=== PATIENT | male | born 1935 | race Caucasian/White ===

== ENCOUNTER 2017-06-26 11:17 | Emergency (ER) | payer MEDICARE, OTHER ==
[~2017-06-26] VITALS: Ht 177.8 cm; Wt 93.0 kg
[~2017-06-26 11:17] MED LIST: ADULT LOW DOSE81 MG PO; ALLOPURINOL 30300 M1 PO; APAP650 PO; AVANDIA; AVANDIA PO; CELEBREX 200 M200 MG PO; CIPROFLOXACIN500 M1 PO; CLINDAMYCIN; DARVOCET-N 1001 EACH PO; ETODOLAC 400 M400 M1 PO; FINASTERIDE5 MG PO; GEMFIBROZIL 60600 MG PO; HYDROCHLOROTHIA25 M1 PO; KAOPECTATE PO; KAOPECTATE240 MG PO; LEVOTHROID PO; LEVOTHROID150 MCG PO; LISINOPRIL-HCT1 EACH PO; LISINOPRIL10 MG PO; LORTAB 5 MG/5001 TA1 PO; PRILOSEC 20 MG20 MG PO; PROPOXY-N-APAP1 EACH PO; PROTONIX40 MG PO; REQUIP 1 MG TABL1 M1 PO; SLOW RELEASE IRON PO; UROXATRAL; UROXATRAL PO; ZOCOR 20 MG TAB20 M1 PO
[2017-06-26] MEDS ORDERED: METFORMIN HCL500 MG PO (11:30)
[2017-06-26 11:46] LABS: ABSOLUTE BASOPHILS 0.1 thou/uL (0.0-0.2); ABSOLUTE EOSINOPHILS 0.5 thou/uL (0.0-0.7); ABSOLUTE MONOCYTES 0.7 thou/uL (0.0-1.2); BASOPHILS 1.2 %; EOSINOPHILS 5.1 %; HEMATOCRIT 46.6 % (42.0-52.0); HEMOGLOBIN 15.9 gm/dL (14.0-18.0); LYMPHOCYTES 21.3 %; MCH 33.3 pg (26.0-34.0); MCHC 34.1 g/dL (28.0-37.0); MCV 97.7 fL (80.0-100.0); MONOCYTES 7.7 %; MPV 7.5 fl. (7.2-11.1); NUCLEATED RBCS 0 /100WBC; PLATELET COUNT* 225 thou/uL (150-400); POLYS 64.7 %; RBC 4.77 mil/uL (4.50-6.00); RDW-CV 13.4 % (10.5-14.5); WBC 9.2 thou/uL (4.0-11.0)
[2017-06-26 11:54] LABS: ANION GAP 10 mmol/L (7-16); BUN 23 mg/dL (7-18); CALCIUM 8.9 mg/dL (8.5-10.1); CHLORIDE 102 mmol/L (98-107); CO2 26 mmol/L (21-32); CREATININE 1.4 mg/dL (0.6-1.3); GLUCOSE 140 mg/dL (70-99); POTASSIUM 4.6 mmol/L (3.5-5.1); SODIUM 138 mmol/L (136-145)
[2017-06-26 11:55] LABS: APTT 28.1 Seconds (25.0-31.3); PROTIME 10.1 Seconds (9.20-11.50)
[2017-06-26 12:07] LABS: ALBUMIN 4.1 g/dL (3.4-5.0); ALKALINE PHOSPHATASE 77 U/L (46-116); NT-PRO BRAIN NAT PEPTIDE 51 pg/mL (<300); SGOT 25 U/L (15-37); SGPT 28 U/L (30-65); TOTAL BILIRUBIN 0.6 mg/dL (<0.1-1.0); TOTAL PROTEIN 7.3 g/dL (6.4-8.2); TROPONIN-I LEVEL <0.06 ng/mL (<0.06)
[2017-06-26 12:09] LABS: URINE BILIRUBIN NEGATIVE (Negative); URINE BLOOD NEGATIVE (Negative); URINE CLARITY CLEAR; URINE COLOR YELLOW; URINE GLUCOSE-RANDOM NEGATIVE (Negative); URINE KETONES NEGATIVE (Negative); URINE LEUKOCYTES-REFLEX NEGATIVE (Negative); URINE NITRITE-REFLEX NEGATIVE (Negative); URINE PROTEIN NEGATIVE (Negative); URINE UROBILINOGEN 0.2 E.U./dl (0.2-1.0)
[2017-06-26] MEDS ORDERED: ZPAK PO (13:38)
[2017-06-26] MEDS ORDERED: ANTIVERT25 MG PO (13:38)
[2017-06-26 13:47] VITALS: BP 131/82
--- NOTE | 2017-06-26 15:53 | EKG ---
[place] [address] ELECTROCARDIOGRAM REPORT Name: ROEL THURMAN [id number] Admission: 06/26/17 Attend Phys: Discharge: 06/26/17 Date of : 39 Report #: [id number] THIS REPORT FOR: //name// [facility] ED Test Date: 2017-06-26 Test Time: 11:28:45 Pat Name: ROEL THURMAN Department: Room: Gender: M Formulation Technician: BIBI : 1935 Requested By: Arnold Pierre Order Number: [id number] MD: Duran Alvares Measurements Intervals [place] Rate: 89 P: 18 MI: 213 QRS: -56 QRSD: 103 T: 37 QT: 347 QTc: 423 Interpretive Statements Sinus rhythm Borderline prolonged MI interval Left anterior fascicular block Abnormal R-wave progression, early transition Compared to ECG 11/20/2009 16:48:37 Left anterior fascicular block now present Atrial premature complex(es) no longer present Electronically Signed On 06-26-2017 15:53:00 DIRECTOR OF TEACHER EDUCATION by Duran Alvares [email or web address] <ELECTRONICALLY SIGNED> By: Duran Alvares MD, [facility] 06/26/17 1553 [id number] Duran Alvares MD, [facility] /EPI
== END 2017-06-26 13:48 | disposition home or self-care (01) ==
LOC: M.ERS 11:17
PROVIDERS: Emergency Medicine Emergency Medical Services
DX: H81.12 Benign paroxysmal vertigo, left ear (principal); I10 Essential (primary) hypertension; E11.9 Type 2 diabetes mellitus without complications; K21.9 Gastro-esophageal reflux disease without esophagitis; Z98.890 Other specified postprocedural states; Z96.651 Presence of right artificial knee joint; Z86.69 Personal history of other diseases of the nervous system and sense organs; Z88.0 Allergy status to penicillin; Z88.2 Allergy status to sulfonamides; Z88.5 Allergy status to narcotic agent; Z91.048 Other nonmedicinal substance allergy status

== ENCOUNTER 2017-09-05 21:00 | Emergency (ER) | payer MEDICARE, OTHER ==
[~2017-09-05] VITALS: Ht 177.8 cm; Wt 90.0 kg
[~2017-09-05 21:00] MED LIST changes: +ANTIVERT25 MG PO; +METFORMIN HCL500 MG PO; +ZPAK PO
[2017-09-05 21:25] LABS: ABSOLUTE BASOPHILS 0.1 thou/uL (0.0-0.2); ABSOLUTE EOSINOPHILS 0.4 thou/uL (0.0-0.7); ABSOLUTE LYMPHOCYTES 2.2 thou/uL (0.8-5.3); ABSOLUTE MONOCYTES 1.2 thou/uL (0.0-1.2); ABSOLUTE NEUTROPHILS 13.6 thou/uL (1.6-8.1); BASOPHILS 0.6 %; CREATININE 1.7 mg/dL (0.6-1.3); HEMATOCRIT 47.3 % (42.0-52.0); HEMOGLOBIN 16.1 gm/dL (14.0-18.0); LYMPHOCYTES 12.8 %; MCH 32.8 pg (26.0-34.0); MCHC 34.1 g/dL (28.0-37.0); MCV 95.9 fL (80.0-100.0); MONOCYTES 6.9 %; MPV 7.9 fl. (7.2-11.1); NUCLEATED RBCS 0 /100WBC; PLATELET COUNT* 229 thou/uL (150-400); POLYS 77.7 %; POTASSIUM 4.3 mmol/L (3.5-5.1); RBC 4.93 mil/uL (4.50-6.00); RDW-CV 13.1 % (10.5-14.5); WBC 17.5 thou/uL (4.0-11.0)
[2017-09-05 21:30] LABS: TOTAL BILIRUBIN 0.7 mg/dL (<0.1-1.0); TOTAL PROTEIN 7.4 g/dL (6.4-8.2)
[2017-09-05 23:13] VITALS: BP 151/82
== END 2017-09-05 23:15 | disposition home or self-care (01) ==
LOC: M.ERS 21:00
PROVIDERS: Emergency Medicine
DX: S00.83XA Contusion of other part of head, initial encounter (principal); G25.81 Restless legs syndrome; M10.9 Gout, unspecified; I10 Essential (primary) hypertension; E11.9 Type 2 diabetes mellitus without complications; K21.9 Gastro-esophageal reflux disease without esophagitis; Z96.652 Presence of left artificial knee joint; Z88.6 Allergy status to analgesic agent; Z88.0 Allergy status to penicillin; Z88.2 Allergy status to sulfonamides; Z88.5 Allergy status to narcotic agent; W01.198A Fall on same level from slipping, tripping and stumbling with subsequent striking against other object, initial encounter; Y93.89 Activity, other specified; Y92.091 Bathroom in other non-institutional residence as the place of occurrence of the external cause; Y99.8 Other external cause status

== ENCOUNTER 2018-07-20 15:08 | Inpatient (IN) | payer MEDICARE, OTHER ==
[~2018-07-20] VITALS: Ht 177.8 cm; Wt 80.6 kg
[~2018-07-20 15:08] MED LIST changes: +FLOMAX0.4 MG PO; -LEVOTHROID PO; +SYNTHROID100 MC1 PO; -UROXATRAL PO
[2018-07-20 15:19] VITALS: BP 133/58
[2018-07-20 15:43] LABS: ABSOLUTE BASOPHILS 0.1 thou/uL (0.0-0.2); ABSOLUTE EOSINOPHILS 0.3 thou/uL (0.0-0.7); ABSOLUTE LYMPHOCYTES 1.7 thou/uL (0.8-5.3); ABSOLUTE MONOCYTES 0.6 thou/uL (0.0-1.2); ABSOLUTE NEUTROPHILS 5.5 thou/uL (1.6-8.1); BASOPHILS 1.4 %; EOSINOPHILS 3.5 %; HEMATOCRIT 37.4 % (42.0-52.0); HEMOGLOBIN 12.3 gm/dL (14.0-18.0); LYMPHOCYTES 21.1 %; MCH 31.1 pg (26.0-34.0); MCV 94.2 fL (80.0-100.0); MONOCYTES 7.5 %; MPV 7.2 fl. (7.2-11.1); NUCLEATED RBCS 0 /100WBC; PLATELET COUNT* 263 thou/uL (150-400); POLYS 66.5 %; RBC 3.97 mil/uL (4.50-6.00); RDW-CV 15.6 % (10.5-14.5); WBC 8.3 thou/uL (4.0-11.0)
[2018-07-20 15:57] LABS: ANION GAP 6 mmol/L (7-16); BUN 18 mg/dL (7-18); CHLORIDE 105 mmol/L (98-107); CO2 27 mmol/L (21-32); CREATININE 1.3 mg/dL (0.6-1.3); GLUCOSE 147 mg/dL (70-99); SODIUM 138 mmol/L (136-145)
[2018-07-20 16:01] LABS: ALBUMIN 3.5 g/dL (3.4-5.0); ALKALINE PHOSPHATASE 97 U/L (46-116); SGOT 17 U/L (15-37); SGPT 18 U/L (30-65); TOTAL BILIRUBIN 0.4 mg/dL (<0.1-1.0); TOTAL PROTEIN 6.9 g/dL (6.4-8.2); TROPONIN-I LEVEL <0.06 ng/mL (<0.06)
[2018-07-20 17:55] VITALS: BP 153/79
[2018-07-20 18:15] VITALS: BP 134/68
[2018-07-20 20:00] VITALS: BP 127/73
[2018-07-20] MEDS ORDERED: NORCO 5-325 TA1 EACH PO (20:41)
[2018-07-20] MEDS ORDERED: TRAMADOL 50 MG50 MG PO (20:42)
[2018-07-20 21:30] LABS: URINE BILIRUBIN NEGATIVE (Negative); URINE BLOOD NEGATIVE (Negative); URINE CLARITY CLEAR; URINE COLOR YELLOW; URINE GLUCOSE-RANDOM NEGATIVE (Negative); URINE KETONES NEGATIVE (Negative); URINE LEUKOCYTES-REFLEX NEGATIVE (Negative); URINE NITRITE-REFLEX NEGATIVE (Negative); URINE PROTEIN NEGATIVE (Negative); URINE SPECIFIC GRAVITY <= 1.005 (1.005-1.030); URINE UROBILINOGEN 0.2 E.U./dl (0.2-1.0)
[2018-07-21] VITALS: BP 129/60
[2018-07-21 04:00] VITALS: BP 140/63
[2018-07-21 05:33] LABS: CHOLESTEROL 104 mg/dL (<200); HDL CHOLESTEROL 42 mg/dL (>40); LDL CHOLESTEROL 44 mg/dL (<100); TC:HDL 2.5 Ratio (Not establshd); TRIGLYCERIDE 90 mg/dL (<150); VLDL 18 mg/dL (<40)
[2018-07-21 05:36] LABS: SERUM ASSESSMENT CLEAR
[2018-07-21 09:00] VITALS: BP 144/69
--- NOTE | 2018-07-21 10:14 | EKG ---
[place] [address] ELECTROCARDIOGRAM REPORT Name: REOL THURMAN Room: [address] ADM IN .R.#: [id number] Admission: 07/20/18 Attend Phys: Mauro Patton MD Discharge: Date of : 39 Report #: [id number] THIS REPORT FOR: //name// [facility] ED Test Date: 2018-07-20 Test Time: 15:34:33 Pat Name: ROEL THURMAN Department: Room: [facility] Gender: M Motorcoach Driver: HIRA : 1935 Requested By: Arline Shukla Order Number: [id number] MD: Eddie Cheema Measurements Intervals [place] Rate: 93 P: 17 CO: 180 QRS: -36 QRSD: 96 T: 34 QT: 348 QTc: 433 Interpretive Statements Sinus rhythm Left axis deviation Abnormal R-wave progression, early transition Compared to ECG 06/26/2017 11:28:45 no change Electronically Signed On 07-21-2018 10:14:11 PHYSICS INSTRUCTOR by Eddie hCeema [email or web address] <ELECTRONICALLY SIGNED> By: Eddie Cheema MD, FAC 07/21/18 1014 1534 1534 Eddie Cheema MD, [facility] /EPI
[2018-07-21] MEDS ORDERED: ANTIVERT25 MG PO (11:24)
[2018-07-21 12:20] VITALS: BP 151/79
[2018-07-21 15:33] VITALS: BP 151/79
[2018-07-21 16:29] VITALS: BP 133/64
[2018-07-21 23:06] LABS: GLYCOHEMOGLOBIN (HGB A1C) 6.2 % (4.8-5.6)
== END 2018-07-21 17:28 | disposition home or self-care (01) | DRG 149 ==
LOC: M.ERS 15:08 → M.2W 16:19 → M.TBA-ER 16:19 → M.2W 18:06
PROVIDERS: Physician Assistant; ADMIT Internal Medicine
DX: R42 Dizziness and giddiness (principal); K21.9 Gastro-esophageal reflux disease without esophagitis; I10 Essential (primary) hypertension; M10.9 Gout, unspecified; E11.9 Type 2 diabetes mellitus without complications; G25.81 Restless legs syndrome; Z96.611 Presence of right artificial shoulder joint; Z96.653 Presence of artificial knee joint, bilateral; Z79.82 Long term (current) use of aspirin; Z79.84 Long term (current) use of oral hypoglycemic drugs; Z88.6 Allergy status to analgesic agent; Z88.0 Allergy status to penicillin; Z88.2 Allergy status to sulfonamides; Z88.8 Allergy status to other drugs, medicaments and biological substances; Z91.048 Other nonmedicinal substance allergy status

== ENCOUNTER → 2019-09-08 | Outpatient (CLI) | payer MEDICARE, OTHER ==
[~2019-09-08] MED LIST changes: +NORCO 5-325 TA1 EACH PO; +TRAMADOL 50 MG50 MG PO
== END ==
LOC: M.RAD 10:37
DX: M47.817 Spondylosis without myelopathy or radiculopathy, lumbosacral region (principal); M41.86 Other forms of scoliosis, lumbar region; I70.0 Atherosclerosis of aorta; G89.29 Other chronic pain; Z88.0 Allergy status to penicillin; Z88.2 Allergy status to sulfonamides

== ENCOUNTER → 2019-11-25 | Outpatient (CLI) | payer MEDICARE, OTHER | LOC: M.RAD 08:31 | DX: R06.02 Shortness of breath (principal) ==

== ENCOUNTER 2021-01-12 23:15 | Inpatient (IN) | payer MEDICARE, OTHER ==
[~2021-01-12] VITALS: Ht 177.8 cm; Wt 84.2 kg
[2021-01-12 23:22] VITALS: BP 75/46
[2021-01-12] MEDS ORDERED: FINASTERIDE5 MG PO (23:34)
[2021-01-12] MEDS ORDERED: ZOCOR 20 MG TAB20 M1 PO (23:35)
[2021-01-12] MEDS ORDERED: OMEPRAZOLE40 MG PO (23:35)
[2021-01-12] MEDS ORDERED: GABAPENTIN100 MG PO (23:35)
[2021-01-12] MEDS ORDERED: METFORMIN HCL500 M3 PO (23:35)
[2021-01-12] MEDS ORDERED: ZESTORETIC 10-1 EACH PO (23:35)
[2021-01-12] MEDS ORDERED: LEVOTHYROXINE137 MC1 PO (23:35)
[2021-01-12] MEDS ORDERED: OXYBUTYNIN 5 MG5 M2 PO (23:36)
[2021-01-12] MEDS ORDERED: FLOMAX0.4 MG PO (23:36)
[2021-01-12] MEDS ORDERED: ASA81BEC PO (23:36)
[2021-01-12] MEDS ORDERED: IRON18 M1 PO (23:36)
[2021-01-12] MEDS ORDERED: ALEVE220 M1 PO (23:36)
[2021-01-12] MEDS ORDERED: MECLIZINE HCL25 M1 PO (23:36)
[2021-01-12] MEDS ORDERED: MYRBETRIQ50 MG PO (23:37)
[2021-01-12 23:54] LABS: HEMATOCRIT 30.6 % (42.0-52.0); HEMOGLOBIN 10.3 gm/dL (14.0-18.0); MCH 32.2 pg (26.0-34.0); MCHC 33.6 g/dL (28.0-37.0); MCV 95.7 fL (80.0-100.0); NUCLEATED RBCS 0 /100WBC; PLATELET COUNT* 308 thou/uL (150-400); RBC 3.19 mil/uL (4.50-6.00); RDW-CV 14.3 % (10.5-14.5)
[2021-01-12 23:59] LABS: CREATININE 5.1 mg/dL (0.6-1.3); POTASSIUM 4.4 mmol/L (3.5-5.1)
[2021-01-13] VITALS (8 sets, daily range): BP systolic 72–144; BP diastolic 45–68
[2021-01-13 00:09] LABS: ALBUMIN 2.5 g/dL (3.4-5.0); MAGNESIUM 1.9 mg/dL (1.8-2.4); PHOSPHORUS* 3.7 mg/dL (2.5-4.9); TOTAL BILIRUBIN 0.6 mg/dL (<0.1-1.0)
[2021-01-13 00:18] LABS: BE -9.9 mmol/L (-2 to +3); PCO2 38.8 mmHg (35.0-45.0)
[2021-01-13 00:19] LABS: pH 7.249 (7.340-7.450)
[2021-01-13 00:56] LABS: ABSOLUTE EOSINOPHILS 0.3 thou/uL (0.0-0.7); ABSOLUTE LYMPHOCYTES 1.4 thou/uL (0.8-5.3); ABSOLUTE MONOCYTES 0.5 thou/uL (0.0-1.2); ABSOLUTE NEUTROPHILS 14.8 thou/uL (1.6-8.1); PLATELET ESTIMATE ADEQUATE; TOXIC GRANULATION 1+
--- NOTE | 2021-01-13 07:35 | NUR ---
CHANGE OF SHIFT REPORT GIVEN PATIENT ASLLEEP IN BED ASSUMED PATIENT CARE
[2021-01-13 09:46] LABS: ALBUMIN 2.3 g/dL (3.4-5.0); POTASSIUM 4.2 mmol/L (3.5-5.1); TOTAL BILIRUBIN 0.5 mg/dL (<0.1-1.0); TOTAL PROTEIN 5.7 g/dL (6.4-8.2)
--- NOTE | 2021-01-13 09:46 | EKG ---
[place] [address] ELECTROCARDIOGRAM REPORT Name: ROEL THURMAN Room: [address] ADM IN [facility].#: [id number] Admission: 01/13/21 Attend Phys: Luis Roach Discharge: Date of : 39 Date of Service: 01/12/21 2319 Report #: [id number] THIS REPORT FOR: //name// [facility] ED Test Date: 2021-01-12 Test Time: 23:19:07 Pat Name: ROEL THURMAN Department: Room: [facility] Gender: M Colored Liquid Plastic Applier: OJSE : 1935 Requested By: Arline Scanlon Order Number: [id number] MD: Eddie Cheema Measurements Intervals Odd Rate: 108 P: -71 WY: 161 QRS: -47 QRSD: 99 T: 91 QT: 326 QTc: 437 Interpretive Statements Sinus or ectopic atrial tachycardia LAD, consider left anterior fascicular block Low voltage, precordial leads Anteroseptal infarct, old Baseline wander in lead(s) V2 Compared to ECG 07/20/2018 15:34:33 Low QRS voltage now present Myocardial infarct finding now present Sinus rhythm no longer present Electronically Signed On 01-13-2021 9:46:24 CDT by Eddie Cheema [email or web address] <ELECTRONICALLY SIGNED> By: Eddie Cheema MD, [facility] 01/13/21 0946 18 Eddie Cheema MD, [facility] /EPI
[2021-01-13 10:01] LABS: CALCIUM 7.5 mg/dL (8.5-10.1); CREATININE 4.5 mg/dL (0.6-1.3); MAGNESIUM 1.9 mg/dL (1.8-2.4)
--- NOTE | 2021-01-13 10:35 | NUR ---
CM ASSESSMENT: PT COVID POSITIVE AND CURRENTLY UNDER ENHANCED PRECAUTIONS. CM ATTEMPTED TO CONTACT THE PT VIA THE HOSPITAL ROOM PHONE. NO ANSWER. CM CONTACTED PT'S COUSIN CARISA AND HE ASSIST WITH CM ASSESSMENT. CARISA INFORMS THAT THE PT RESIDES AT HOME WITH HIM. PT NORMALLY INDEPEDENT WITH ADL'S, AND DOES NOT NORMALL USES ANY DME FOR MOBILITY. HOWEVER OVER THE PAST FEW DAYS HE HAS BEEN USING A CANE FOR MOBILITY. PT HAS PAST HX OF HH AFTER A SX. PT HAS PAST HX OF SNF AT [facility] A FEW YRS AGO. PT DID NOT HAVE HOME OXYGEN PRIOR TO ADMIT. CM WILL REMAIN AVAILABLE TO ASSIST AND FOLLOW WITH D/C PLANNING NEEDED.
[2021-01-13 13:18] LABS: ABSOLUTE BASOPHILS 0.1 thou/uL (0.0-0.2); ABSOLUTE EOSINOPHILS 0.4 thou/uL (0.0-0.7); ABSOLUTE LYMPHOCYTES 0.9 thou/uL (0.8-5.3); ABSOLUTE MONOCYTES 1.1 thou/uL (0.0-1.2); ABSOLUTE NEUTROPHILS 11.7 thou/uL (1.6-8.1); BASOPHILS 0.4 %; BE -9.8 mmol/L (-2 to +3); EOSINOPHILS 2.6 %; HEMATOCRIT 30.8 % (42.0-52.0); HEMOGLOBIN 10.6 gm/dL (14.0-18.0); LYMPHOCYTES 6.3 %; MCH 32.7 pg (26.0-34.0); MCHC 34.3 g/dL (28.0-37.0); MCV 95.6 fL (80.0-100.0); MONOCYTES 7.6 %; MPV 6.6 fl. (7.2-11.1); NUCLEATED RBCS 0 /100WBC; PCO2 VENOUS 52.8 mmHg (41.0-51.0); PLATELET COUNT* 307 thou/uL (150-400); PO2 VENOUS 28.7 mmHg (35.0-45.0); POLYS 83.1 %; RBC 3.23 mil/uL (4.50-6.00); RDW-CV 14.8 % (10.5-14.5); WBC 14.1 thou/uL (4.0-11.0)
[2021-01-13 19:01] LABS: URINE BILIRUBIN NEGATIVE (Negative); URINE BLOOD 3+ (Negative); URINE CLARITY CLEAR; URINE COLOR YELLOW; URINE GLUCOSE-RANDOM NEGATIVE (Negative); URINE KETONES NEGATIVE (Negative); URINE LEUKOCYTES 1+ (Negative); URINE NITRITE NEGATIVE (Negative); URINE PROTEIN 1+ (Negative); URINE UROBILINOGEN 0.2 E.U./dl (0.2-1.0)
[2021-01-13 19:03] LABS: BACTERIA None Seen /HPF (None Seen); CRYSTALS None Seen /LPF (None Seen); HYALINE CASTS 0-3 Few /LPF (None Seen); SQUAMOUS 4-10 Moderate /LPF (0-3); URINE RBC 3-10 Few /HPF (0-2); URINE WBC 0-5 Rare /HPF (0-5)
[2021-01-14 00:37] VITALS: BP 114/60
[2021-01-14 04:26] VITALS: BP 103/62
[2021-01-14 05:21] LABS: BE -5.9 mmol/L (-2 to +3); PCO2 VENOUS 50.9 mmHg (41.0-51.0); PO2 VENOUS 137.5 mmHg (35.0-45.0)
--- NOTE | 2021-01-14 05:30 | NUR ---
ASSUMED CARE OF PT AFTER REPORT AT 1930. PT A&OX1. CONFUSED. VSS. PHYSICAL ASSESSMENT COMPLETED AND CHARTED. PT ON HFNC 15L. PT TRACING SR/ST. PT WITH ESTRADA TO DEPENDENT DRAIN. PT TRIED TO GET OUT OF BED. COMBATIVE. CALLED SECURITY-ABLE TO CALM DOWN. DR HUERTA MADE AWARE WITH NEW ORDERS. FALL PRECAUTIONS IN PLACE. CALL LIGHT WITHIN REACH.
[2021-01-14 07:36] LABS: CALCIUM 7.7 mg/dL (8.5-10.1); POTASSIUM 4.4 mmol/L (3.5-5.1)
[2021-01-14 07:41] LABS: CREATININE 2.8 mg/dL (0.6-1.3)
[2021-01-14 08:00] VITALS: BP 131/60
[2021-01-14 12:13] VITALS: BP 126/59
[2021-01-14 16:00] VITALS: BP 139/76
--- NOTE | 2021-01-14 18:40 | NUR ---
RECEIVED REPORT AROUND 0715. ASSUMED CARE. VS AND ASSESSMENT CHARTED. IV INTACT. HEART MONITOR ATTACHED AT ST. PT STAYED IN CHAIR MOST OF SHIFT. VERY CONFUSED. PULLING OFF O2 CANNULA MOST OF SHIFT. GAVE ATIVAN ONE DOSE THIS AM. THIS AFTERNOON GAVE ZYPREXA ONE DOSE 2.5MG AND ONE MORE DOSE AN HOUR LATER. PT STILL PULLING. MITTENS PUT ON PT. DR SMALLWOOD GAVE TELEPHONE ORDERS FOR ZYPREXA AND TO D/C ATIVAN. ALSO GAVE ORDERS FOR 2.0 RESTRAINTS. PT CURRENTLY ON NONREBREATHER AT 15L. PT LYINGING IN BED. MEDS GIVEN PER AUG. HOURLY ROUNDING PERFORMED. ISOLATION INTACT. BED ALARM ON. CALL LIGHT WITH IN REACH. PT MOVED FROM 108 TO 104. ALL BELONGINGS MOVED TO NEW ROOM. WILL CONTINUE TO MONITOR.
[2021-01-14 19:26] LABS: CALCIUM 8.1 mg/dL (8.5-10.1); CREATININE 2.1 mg/dL (0.6-1.3); POTASSIUM 4.1 mmol/L (3.5-5.1)
[2021-01-14 20:00] VITALS: BP 111/67
[2021-01-15] VITALS: BP 122/65
[2021-01-15 02:05] LABS: COMPLEMENT-C4 46 mg/dL (12-38)
[2021-01-15 04:31] LABS: CALCIUM 8.4 mg/dL (8.5-10.1); POTASSIUM 4.4 mmol/L (3.5-5.1)
[2021-01-15 05:31] VITALS: BP 136/70
--- NOTE | 2021-01-15 05:38 | NUR ---
ASSUMED CARE OF PT AFTER REPORT AT 1930. PT A&OX1. CONFUSED. VSS. PHYSICAL ASSESSMENT COMPLETED AND CHARTED. PT ON NRB 15L/BIPAP 50%-REMOVING O2- WITH ORDER FOR RESTRAINTS-SHIFTED TO HHFNC 65%/40L. PT TRACING SR/1ST DEG ON TELE. PT TURNED TO SIDES. FALL PRECAUTIONS IN PLACE.
[2021-01-15 08:00] VITALS: BP 117/57
[2021-01-15 11:04] LABS: BE -2.9 mmol/L (-2 to +3); PCO2 38.7 mmHg (35.0-45.0); pH 7.372 (7.340-7.450)
[2021-01-15 12:57] VITALS: BP 115/55
[2021-01-15 16:10] VITALS: BP 119/74
--- NOTE | 2021-01-15 19:19 | NUR ---
RECEIVED REPORT AROUND 0715. ASSUMED CARE. VS AND ASSESSMENT CHARTED. IV INTACT. HEART MONITOR ATTACHED AT SR. PT IN 2. RESTRAINTS. NEW IV STARTED BY MEDICAL EDUCATION SPECIALIST IN LEFT HAND/WRIST. HEATED HI FLOW INTACT. PT TOOK MEDS CRUSHED IN APPLE SAUCE. ESTRADA INTACT. ISOLATION INTACT. MEDS GIVEN PER AUG. HOURLY ROUNDING PERFORMED. CALL LIGHT WITH IN REACH.
[2021-01-15 20:00] VITALS: BP 129/70
[2021-01-16 00:47] VITALS: BP 160/77
[2021-01-16 06:01] VITALS: BP 171/87
--- NOTE | 2021-01-16 06:48 | NUR ---
ASSUMED CARE OF PT AFTER REPORT AT 1930. PT A&OX1. CONFUSED. AGITATED. TRYING TO GET OUT OF BED. MAINTAINED ON 2 POINT RESTRAINTS ORDERED. PT ON HHFNC 100%/45L/NRBM 15L. PT TRACING SR/ST/1ST DEG. PT ABLE TO REMOVE ESTRADA CATHETER WITH BLEEDING NOTED. REINSERTED ESTRADA WITH BLOODY OUTPUT. FLUSHED ESTRADA WITH BLOOD CLOTS NOTED. FALL PRECAUTIONS IN PLACE.
[2021-01-16 08:00] VITALS: BP 97/64
[2021-01-16 11:35] VITALS: BP 145/74
--- NOTE | 2021-01-16 14:49 | NUR ---
Anticipate dc in a few days. Pt down to 10L o2, continue to wean. Covid positive. Pt will need ex ox at dc
[2021-01-16 16:12] VITALS: BP 145/73
--- NOTE | 2021-01-16 17:49 | NUR ---
RECEIVED REPORT AROUND 0715. ASSUMED CARE. VS AND ASSESSMENT CHARTED. IV INTACT. HEART MONITOR ATTACHED AT SR/ST. NEW IV INSERTED LEFT UPPER ARM MIDLINE. MEDS GIVEN PER AUG. PT IN RESTRAINTS. SOFT ON BILATERAL WRISTS. ESTRADA INTACT. BLOODY TINGED THIS AM. NO LONGER BLOODY. PT RESTING NOW. HOURLY ROUNDING PERFORMED. NRB MASK 13L. PT CONFUSED THROUGHOUT SHIFT. UPDATED COUSIN ON PT AND ON RESTRAINTS AND REASON BEHIND THEM. CALL LIGHT WITH IN REACH. WILL CONTINUE TO MONITOR.
[2021-01-16 19:30] VITALS: BP 154/86
[2021-01-17 00:43] VITALS: BP 160/81
--- NOTE | 2021-01-17 05:02 | NUR ---
PT SLEPT ON AND OFF THIS SHIFT. ASSESSMENT DOCUMENTED. MEDS GIVEN PER E-AUG. IV PATENT. PT CONFUSED AND PULLING AT HEART MONITOR AND SHAKING OFF O2 WHILE IN RESTRAINTS. UNABLE TO REORIENTATE OR EDUCATE. FREQUENT CHECKS AND RANGE OF MOTIONS COMPLETED. PT REPOSITIONED THORUGH SHIFT. ESTRADA IN PLACE TO DEPENDANT DRAINAGE. FALL PRECAUTIONS IN PLACE. WILL CONTINUE WITH PLAN OF CARE.
[2021-01-17 08:00] VITALS: BP 149/81
[2021-01-17 12:00] VITALS: BP 151/76
--- NOTE | 2021-01-17 12:58 | NUR ---
Covid positive. On 50NRB. Pt will remain inpt for several more days. Continue to wean o2.
[2021-01-17 15:38] LABS: ABSOLUTE LYMPHOCYTES 0.4 thou/uL (0.8-5.3); ABSOLUTE MONOCYTES 0.4 thou/uL (0.0-1.2); ABSOLUTE NEUTROPHILS 13.1 thou/uL (1.6-8.1); BASOPHILS 0.2 %; BE -0.9 mmol/L (-2 to +3); HEMATOCRIT 31.8 % (42.0-52.0); HEMOGLOBIN 10.9 gm/dL (14.0-18.0); LYMPHOCYTES 2.9 %; MCH 32.6 pg (26.0-34.0); MCHC 34.4 g/dL (28.0-37.0); MCV 94.7 fL (80.0-100.0); MONOCYTES 3.2 %; MPV 6.4 fl. (7.2-11.1); NUCLEATED RBCS 0 /100WBC; PCO2 VENOUS 41.5 mmHg (41.0-51.0); PLATELET COUNT* 378 thou/uL (150-400); PO2 VENOUS 30.3 mmHg (35.0-45.0); POLYS 93.7 %; RBC 3.35 mil/uL (4.50-6.00); RDW-CV 14.6 % (10.5-14.5)
[2021-01-17 15:47] LABS: ALBUMIN 2.2 g/dL (3.4-5.0); CALCIUM 8.9 mg/dL (8.5-10.1); CREATININE 1.7 mg/dL (0.6-1.3); TOTAL BILIRUBIN 0.3 mg/dL (<0.1-1.0); TOTAL PROTEIN 5.8 g/dL (6.4-8.2)
--- NOTE | 2021-01-17 18:32 | NUR ---
RECEIVED REPORT AROUND 0715. ASSUMED CARE. VS AND ASSESSMENT CHARTED. PT AGITATED THIS. RESTRAINTS INTACT THIS AM. RESTRAINTS CAME OFF AROUND 1000. MITTENS PUT ON PT. PT CALM AND SLEEPING THROUGH OUT DAY. MEDS GIVEN PER AUG. HOURLY ROUNDING PERFORMED. PT CURRENTLY BECOMING RESTLESS. TRYING TO TAKE OFF O2. CONTACT WAITING FOR ORDERS. CALL LIGHT WITH IN REACH. WILL CONTINUE TO MONITOR.
[2021-01-17 20:34] VITALS: BP 153/85
[2021-01-18 00:23] VITALS: BP 113/89
--- NOTE | 2021-01-18 07:44 | NUR ---
PT IS ABLE TO COMMUNICATE HIS NEEDS TO STAFF WITH ALOT OF DIFFICULTY; HE IS A+OX1, AT MOST, CONFUSED, UNCOOPERATIVE, AND FORGETFUL. HE HAS DENIED THE NEED FOR PAIN MEDICATION UP TO 0700 THIS MORNING. MITTENS ON BECAUSE HE PULLS OFF HIS HEATED HIGH FLOW CANULA, TELE, PULLS AT HIS ESTRADA; THIS HAS BEEN MARGINALLY HELPFUL. ESTRADA HAS BEEN PATENT UP TO 0700 TODAY.
[2021-01-18 09:46] LABS: ABSOLUTE EOSINOPHILS 0.6 thou/uL (0.0-0.7); ABSOLUTE LYMPHOCYTES 0.5 thou/uL (0.8-5.3); ABSOLUTE MONOCYTES 0.4 thou/uL (0.0-1.2); ABSOLUTE NEUTROPHILS 14.6 thou/uL (1.6-8.1); BASOPHILS 0.3 %; EOSINOPHILS 3.7 %; HEMATOCRIT 33.8 % (42.0-52.0); HEMOGLOBIN 11.3 gm/dL (14.0-18.0); LYMPHOCYTES 3.4 %; MCH 31.8 pg (26.0-34.0); MCHC 33.6 g/dL (28.0-37.0); MCV 94.8 fL (80.0-100.0); MONOCYTES 2.3 %; MPV 7.1 fl. (7.2-11.1); NUCLEATED RBCS 0 /100WBC; PLATELET COUNT* 416 thou/uL (150-400); POLYS 90.3 %; RBC 3.56 mil/uL (4.50-6.00); RDW-CV 14.8 % (10.5-14.5); WBC 16.1 thou/uL (4.0-11.0)
[2021-01-18 10:03] LABS: ALBUMIN 2.3 g/dL (3.4-5.0); CALCIUM 8.8 mg/dL (8.5-10.1); CREATININE 1.7 mg/dL (0.6-1.3); POTASSIUM 4.3 mmol/L (3.5-5.1); TOTAL BILIRUBIN 0.4 mg/dL (<0.1-1.0); TOTAL PROTEIN 5.8 g/dL (6.4-8.2)
[2021-01-18 10:29] LABS: BE -1.5 mmol/L (-2 to +3); PO2 VENOUS 30.7 mmHg (35.0-45.0)
[2021-01-18 11:11] VITALS: BP 153/86
[2021-01-18 12:20] VITALS: BP 150/92
--- NOTE | 2021-01-18 12:40 | NUR ---
pt is covid positive, on 50 hiflow. plan is to wean o2.
[2021-01-18 17:51] VITALS: BP 135/92
[2021-01-18 19:44] VITALS: BP 108/76
[2021-01-19 01:24] VITALS: BP 149/79
[2021-01-19 04:24] VITALS: BP 135/71
--- NOTE | 2021-01-19 06:54 | NUR ---
PT IS ABLE TO COMMUNICATE HIS NEEDS TO STAFF WITH MINOR DIFFICULTY; HE IS BETTER, BUT CAN STILL BE CONFUSED AT TIMES. HE HAS DENIED THE NEED FOR PAIN MEDICATION UP TO THIS TIME. HEATED HIGH FLOW O2 MAINTAINED. ESTRADA LEAKS A LITTLE BUT IS PATENT; PT HAS BEEN PASSING SOME CLOTS.
[2021-01-19 09:49] LABS: HEMATOCRIT 29.4 % (42.0-52.0); MCHC 33.8 g/dL (28.0-37.0); MCV 94.6 fL (80.0-100.0); MPV 7.4 fl. (7.2-11.1); NUCLEATED RBCS 0 /100WBC; PLATELET COUNT* 350 thou/uL (150-400); RBC 3.11 mil/uL (4.50-6.00); RDW-CV 14.5 % (10.5-14.5); WBC 17.9 thou/uL (4.0-11.0)
[2021-01-19 10:01] LABS: CALCIUM 8.2 mg/dL (8.5-10.1); CREATININE 1.5 mg/dL (0.6-1.3); MAGNESIUM 1.8 mg/dL (1.8-2.4); POTASSIUM 4.8 mmol/L (3.5-5.1); TOTAL BILIRUBIN 0.4 mg/dL (<0.1-1.0); TOTAL PROTEIN 4.7 g/dL (6.4-8.2)
[2021-01-19 10:14] LABS: ABSOLUTE LYMPHOCYTES 0.9 thou/uL (0.8-5.3); ABSOLUTE MONOCYTES 0.5 thou/uL (0.0-1.2); ABSOLUTE NEUTROPHILS 16.5 thou/uL (1.6-8.1); METAMYELOCYTES 1 %; PLATELET ESTIMATE ADEQUATE
[2021-01-19 11:09] LABS: ANA INTERPRETATION Negative (()); HEPATITIS B SURFACE AG Negative (Negative)
[2021-01-19 13:06] VITALS: BP 96/67
--- NOTE | 2021-01-19 13:59 | NUR ---
The patient pulled his cather out. The patient has voided 150ml dark red tinge.
--- NOTE | 2021-01-19 16:00 | NUR ---
Barriers to dicharge- pt remains on HF O2 Will continue to follow for discharge needs.
[2021-01-19 17:02] VITALS: BP 147/75
[2021-01-19 20:04] VITALS: BP 119/72
[2021-01-20] VITALS (7 sets, daily range): BP systolic 126–159; BP diastolic 54–81
--- NOTE | 2021-01-20 05:24 | NUR ---
PT IS ABLE TO COMMUNICATE HIS NEEDS TO STAFF WITH MINOR DIFFICULTY; HE IS CONFUSED AT TIMES AND FORGETFUL. HE HAS DENIED THE NEED FOR PAIN MEDICATION UP TO THIS TIME. HEATED HIGH FLOW O2 MAINTAINED. PATIENT VOIDING WITHOUT DIFFICULTY AT THIS TIME.
--- NOTE | 2021-01-20 09:09 | NUR ---
barrier to d/c is pt remains on hf o2 at 50 lpm
[2021-01-20 15:14] LABS: ABSOLUTE LYMPHOCYTES 0.5 thou/uL (0.8-5.3); ABSOLUTE MONOCYTES 0.4 thou/uL (0.0-1.2); ABSOLUTE NEUTROPHILS 19.4 thou/uL (1.6-8.1); BASOPHILS 0.1 %; HEMATOCRIT 34.1 % (42.0-52.0); HEMOGLOBIN 11.3 gm/dL (14.0-18.0); LYMPHOCYTES 2.6 %; MCH 31.2 pg (26.0-34.0); MCHC 33.1 g/dL (28.0-37.0); MCV 94.2 fL (80.0-100.0); MONOCYTES 2.1 %; MPV 7.2 fl. (7.2-11.1); NUCLEATED RBCS 0 /100WBC; PLATELET COUNT* 351 thou/uL (150-400); POLYS 95.2 %; RBC 3.62 mil/uL (4.50-6.00); RDW-CV 15.1 % (10.5-14.5); WBC 20.4 thou/uL (4.0-11.0)
[2021-01-20 15:22] LABS: CALCIUM 8.8 mg/dL (8.5-10.1); CREATININE 1.7 mg/dL (0.6-1.3); MAGNESIUM 1.8 mg/dL (1.8-2.4)
[2021-01-21 04:37] VITALS: BP 145/85
--- NOTE | 2021-01-21 05:41 | NUR ---
PT IS ABLE TO COMMUNICATE HIS NEEDS TO STAFF WITH MINOR DIFFICULTY; HE IS STILL CONFUSED AT TIMES AND IS [id number]. HE HAS DENIED THE NEED FOR PAIN MEDICATION UP TO THIS TIME. PT HAS BEEN VOIDING USING A URINAL, VERY LITTLE INCONTINENCE AT THIS TIME. HHC O2 MAINTAINED.
[2021-01-21 08:00] VITALS: BP 138/84
[2021-01-21 12:37] VITALS: BP 141/82
[2021-01-21 17:21] VITALS: BP 134/80
--- NOTE | 2021-01-21 19:07 | NUR ---
patient resting in room with call light within reach, no complaints at this time, all meds given per MAR, patient A&O x 4 but confused at times. SLIV. Giving report to shift foreman.
[2021-01-21 20:45] VITALS: BP 138/68
[2021-01-22] VITALS: BP 150/88
--- NOTE | 2021-01-22 02:42 | NUR ---
ASSUMED CARE OF PT AT 1900. PT IS ORIENTED X'S 2. VSS. PERRLA. NO COMPLAINTS OF PAIN. PT IS ON HEATED HIGH FLOW CANNULA. PT IS IN SINUS RYTHM ON THE TELEMETRY. PT IS RESTING COMFORTABLY IN BED. RESPIRATIONS ARE EVEN AND NONLABORED. WILL CONTINUE TO MONITOR PT.
[2021-01-22 04:00] VITALS: BP 148/76
[2021-01-22 08:00] VITALS: BP 135/64
[2021-01-22 09:15] LABS: HEMATOCRIT 35.7 % (42.0-52.0); HEMOGLOBIN 11.9 gm/dL (14.0-18.0); MCH 31.5 pg (26.0-34.0); MCHC 33.2 g/dL (28.0-37.0); MCV 94.9 fL (80.0-100.0); MPV 8.1 fl. (7.2-11.1); RBC 3.76 mil/uL (4.50-6.00); WBC 26.3 thou/uL (4.0-11.0)
[2021-01-22 09:30] LABS: ALBUMIN 2.4 g/dL (3.4-5.0); CALCIUM 8.7 mg/dL (8.5-10.1); CREATININE 1.5 mg/dL (0.6-1.3); MAGNESIUM 1.9 mg/dL (1.8-2.4); POTASSIUM 4.5 mmol/L (3.5-5.1); TOTAL BILIRUBIN 0.6 mg/dL (<0.1-1.0); TOTAL PROTEIN 5.7 g/dL (6.4-8.2)
[2021-01-22 12:00] VITALS: BP 150/82
[2021-01-22 16:00] VITALS: BP 103/64
[2021-01-22 21:45] VITALS: BP 160/77
[2021-01-23 00:23] VITALS: BP 142/69
--- NOTE | 2021-01-23 03:48 | NUR ---
ASSUMED CARE OF PT AT 1900. PT IS ORIENTED X'S 3. VSS. PERRLA. NO COMPLAINTS OF PAIN. PT IS IN SINUS RYTHM ON THE TELEMETRY. PT IS RESTING COMFORTABLY IN BED. RESPIRATIONS ARE EVEN AND NONLABORED. WILL CONTINUE TO MONITOR PT.
[2021-01-23 05:39] VITALS: BP 135/76
--- NOTE | 2021-01-23 10:19 | NUR ---
barriers to d/c: pt current on 15L of o2. poss will need ex ox order to determine o2 needs at dc.
[2021-01-23 12:32] VITALS: BP 118/53
[2021-01-23 14:09] LABS: ABSOLUTE BASOPHILS 0.1 thou/uL (0.0-0.2); ABSOLUTE EOSINOPHILS 0.2 thou/uL (0.0-0.7); ABSOLUTE LYMPHOCYTES 0.6 thou/uL (0.8-5.3); ABSOLUTE MONOCYTES 0.6 thou/uL (0.0-1.2); ABSOLUTE NEUTROPHILS 25.2 thou/uL (1.6-8.1); BASOPHILS 0.4 %; EOSINOPHILS 0.9 %; HEMATOCRIT 37.6 % (42.0-52.0); HEMOGLOBIN 12.3 gm/dL (14.0-18.0); LYMPHOCYTES 2.2 %; MCH 31.7 pg (26.0-34.0); MCHC 32.8 g/dL (28.0-37.0); MCV 96.8 fL (80.0-100.0); MONOCYTES 2.1 %; MPV 8.1 fl. (7.2-11.1); NUCLEATED RBCS 0 /100WBC; PLATELET COUNT* 297 thou/uL (150-400); POLYS 94.4 %; RBC 3.88 mil/uL (4.50-6.00); RDW-CV 15.2 % (10.5-14.5); WBC 26.8 thou/uL (4.0-11.0)
[2021-01-23 14:18] LABS: ALBUMIN 2.9 g/dL (3.4-5.0); CALCIUM 8.7 mg/dL (8.5-10.1); CREATININE 1.7 mg/dL (0.6-1.3); MAGNESIUM 1.8 mg/dL (1.8-2.4); POTASSIUM 4.3 mmol/L (3.5-5.1); TOTAL BILIRUBIN 0.5 mg/dL (<0.1-1.0); TOTAL PROTEIN 6.6 g/dL (6.4-8.2)
[2021-01-23 14:36] LABS: PROTIME 10.2 Seconds (9.20-11.50)
--- NOTE | 2021-01-23 15:26 | NUR ---
The patient is alert, able to make needs known. He's sitting in the recliner. Call light within reach. Belongings within reach.
[2021-01-23 15:50] VITALS: BP 143/76
[2021-01-23 20:40] VITALS: BP 112/58
[2021-01-24] VITALS (7 sets, daily range): BP systolic 108–144; BP diastolic 52–72
--- NOTE | 2021-01-24 03:16 | NUR ---
ASSUMED CARE OF PT AT 1900. PT IS ALERT TIMES 3. VSS. NO COMPLAINTS OF PAIN. PT IS ON 2 LITERS O2. PT IS IN SINUS RYTHM ON THE TELEMETRY. PT IS RESTING COMFORTABLY IN BED. RESPIRATIONS ARE EVEN AND NONLABORED. WILL CONTINUE TO MONITOR PT.
[2021-01-24 05:36] LABS: HEMATOCRIT 34.3 % (42.0-52.0); HEMOGLOBIN 11.2 gm/dL (14.0-18.0); MCHC 32.5 g/dL (28.0-37.0); MCV 95.2 fL (80.0-100.0); MPV 7.9 fl. (7.2-11.1); RBC 3.61 mil/uL (4.50-6.00); WBC 17.6 thou/uL (4.0-11.0)
[2021-01-24 05:45] LABS: CALCIUM 8.8 mg/dL (8.5-10.1); CREATININE 1.5 mg/dL (0.6-1.3); POTASSIUM 3.8 mmol/L (3.5-5.1)
--- NOTE | 2021-01-24 12:05 | NUR ---
barriers to d/c: pt will be re-test for oximetry o2 needs tomorrow. pt to d/c home with hh. cm faxed referral to [facility] at [phone].
--- NOTE | 2021-01-24 23:33 | NUR ---
ASSUMED CARE OF PT AT 1900. PT IS ALERT AND ORIENTED. VSS. PERRLA. NO COMPLAINTS OF PAIN. PT IS ON ROOM AIR. PT IS IN SINUS RYTHM ON THE TELEMETRY. PT IS RESTING COMFORTABLY IN BED. RESPIRATIONS ARE EVEN AND NONLABORED. WILL CONTINUE TO MONITOR PT.
[2021-01-25] VITALS: BP 107/45
--- NOTE | 2021-01-25 02:44 | NUR ---
PT IS DESATING WHILE ASLEEP. PT PLACED ON 1 LITER NASAL CANNULA AND IS NOW MAINTAINING 90 PERCENT.
[2021-01-25 03:53] LABS: ALBUMIN 2.3 g/dL (3.4-5.0); CALCIUM 8.7 mg/dL (8.5-10.1); CREATININE 1.3 mg/dL (0.6-1.3); MAGNESIUM 1.6 mg/dL (1.8-2.4); POTASSIUM 3.8 mmol/L (3.5-5.1); TOTAL BILIRUBIN 0.6 mg/dL (<0.1-1.0); TOTAL PROTEIN 5.2 g/dL (6.4-8.2)
[2021-01-25 04:26] LABS: ABSOLUTE EOSINOPHILS 0.2 thou/uL (0.0-0.7); ABSOLUTE LYMPHOCYTES 1.4 thou/uL (0.8-5.3); ABSOLUTE MONOCYTES 1.2 thou/uL (0.0-1.2); ABSOLUTE NEUTROPHILS 12.1 thou/uL (1.6-8.1); BASOPHILS 0.3 %; EOSINOPHILS 1.1 %; HEMATOCRIT 31.1 % (42.0-52.0); HEMOGLOBIN 10.4 gm/dL (14.0-18.0); LYMPHOCYTES 9.5 %; MCH 31.6 pg (26.0-34.0); MCHC 33.4 g/dL (28.0-37.0); MCV 94.6 fL (80.0-100.0); NUCLEATED RBCS 0 /100WBC; PLATELET COUNT* 234 thou/uL (150-400); POLYS 81.1 %; RBC 3.29 mil/uL (4.50-6.00); WBC 14.9 thou/uL (4.0-11.0)
[2021-01-25 04:49] VITALS: BP 116/59
[2021-01-25 08:57] VITALS: BP 142/73
[2021-01-25] MEDS ORDERED: SEROQUEL 50 MG50 MG PO (09:07)
[2021-01-25] MEDS ORDERED: DEXAMETHASONE6 MG PO (09:07)
[2021-01-25] MEDS ORDERED: VENTOLIN HFA 1818 GM INH (09:07)
[2021-01-25 12:08] VITALS: BP 110/54
--- NOTE | 2021-01-25 13:03 | NUR ---
Pt discharging to home today. Faxed HH orders to [facility]. Faxed home o2 referral to [facility], [employer] for home o2.
--- NOTE | 2021-01-25 14:08 | NUR ---
Discharge instructions given to the patient. All questions and concerned voiced. The patient is alert. Denies pain. IV access removed.
--- NOTE | 2021-01-25 14:34 | NUR ---
1430 The patient was wheeled to his nephew's car. No distress noted. All questions voiced.
== END 2021-01-25 14:30 | disposition home health service (06) | DRG 871 ==
LOC: M.ERS 23:15 → M.ORTHSURG 01-13 01:45 → M.TBA-ER 01-13 01:45 → M.ORTHSURG 01-13 02:26
PROVIDERS: Family Medicine; Internal Medicine; Internal Medicine Critical Care Medicine; Internal Medicine Nephrology; Personal Emergency Response Attendant; ADMIT Internal Medicine; ATTEND Internal Medicine
DX: A41.9 Sepsis, unspecified organism (principal); U07.1 COVID-19; J12.82 Pneumonia due to coronavirus disease 2019; R65.21 Severe sepsis with septic shock; N17.0 Acute kidney failure with tubular necrosis; J80 Acute respiratory distress syndrome; E87.2 Acidosis; E87.1 Hypo-osmolality and hyponatremia; E44.0 Moderate protein-calorie malnutrition; E86.1 Hypovolemia; Z96.611 Presence of right artificial shoulder joint; M10.9 Gout, unspecified; I10 Essential (primary) hypertension; E11.9 Type 2 diabetes mellitus without complications; K21.9 Gastro-esophageal reflux disease without esophagitis; Z96.653 Presence of artificial knee joint, bilateral; R33.9 Retention of urine, unspecified; D64.9 Anemia, unspecified; Z79.899 Other long term (current) drug therapy; Z79.82 Long term (current) use of aspirin; Z88.8 Allergy status to other drugs, medicaments and biological substances; Z88.0 Allergy status to penicillin; Z91.048 Other nonmedicinal substance allergy status; Z68.26 Body mass index [BMI] 26.0-26.9, adult

== ENCOUNTER → 2021-02-14 | Outpatient (CLI) | payer MEDICARE, OTHER ==
[~2021-02-14] MED LIST changes: +ALEVE220 M1 PO; +ASA81BEC PO; +DEXAMETHASONE6 MG PO; +GABAPENTIN100 MG PO; +IRON18 M1 PO; +LEVOTHYROXINE137 MC1 PO; +MECLIZINE HCL25 M1 PO; +METFORMIN HCL500 M3 PO; +MYRBETRIQ50 MG PO; +OMEPRAZOLE40 MG PO; +OXYBUTYNIN 5 MG5 M2 PO; +SEROQUEL 50 MG50 MG PO; +VENTOLIN HFA 1818 GM INH; +ZESTORETIC 10-1 EACH PO
== END ==
LOC: M.RAD 13:24
PROVIDERS: ATTEND Internal Medicine
DX: R91.8 Other nonspecific abnormal finding of lung field (principal); J12.82 Pneumonia due to coronavirus disease 2019; U07.1 COVID-19